=== PATIENT | female | born 1955 | race Caucasian/White ===

== ENCOUNTER 2020-05-28 23:36 | Emergency (ER) | payer SELFPAY ==
[2020-05-29] MEDS ORDERED: HYDROcodone/Acetaminophen 5/325 mg Tablet ONE (01:04)
[2020-05-29 01:08] LABS: ALT (SGPT) 13 U/L (8-55); AST (SGOT) 14 U/L (5-34); Albumin 3.6 g/dL (3.4-4.8); Alkaline Phosphatase 122 U/L (40-110); Anion Gap 15 mmol/L (10-20); BUN (Urea Nitrogen) 15 mg/dL (9.8-20.1); Bilirubin, Total 0.2 mg/dL (0.2-1.2); Calc. Creatinine Clearance 0 mL/min (70-130); Calcium 9.3 mg/dL (7.8-10.44); Carbon Dioxide 24 mmol/L (23-31); Chloride 105 mmol/L (98-107); Estimated GFR-MDRD 73; Globulin 3.2 g/dL (2.4-3.5); Glucose 93 mg/dL (80-115); Potassium 4.1 mmol/L (3.5-5.1); Protein, Total 6.8 g/dL (6.0-8.3); Sodium 140 mmol/L (136-145)
[2020-05-29] MEDS ORDERED: Ketorolac Tromethamine 30 MG/ML VIAL ONE ×2 (01:24→01:25)
[2020-05-29 01:36] LABS: INR-International Normal Ratio 0.9
--- NOTE | 2020-05-29 08:02 | ULT ---
PRELIMINARY REPORT/[facility]/EMERGENCY AFTER HOURS PROCEDURE EXAM: US Duplex right Lower Extremity Veins. CLINICAL HISTORY: RLE pain at Rt knee, HX: PE TECHNIQUE: Real-time ultrasound scan of the veins of the right lower extremity with color Doppler flow, spectral waveform analysis and compression. COMPARISON: None provided. FINDINGS: DEEP VEINS: The common femoral, femoral, and popliteal veins are echolucent and compressible. These vessels demon strate respiratory variation and augmentation. There is normal color Doppler flow throughout. The visualized calf veins are also patent. SUPERFICIAL VEINS: The visualized greater saphenous vein is patent. SOFT TISSUES: A complex popliteal cyst measures 5.6 x 0.6 x 2.3 cm. IMPRESSION: No deep venous thrombosis in the right lower extremity. Complex popliteal cyst measuring 5.6 cm ELECTRONICALLY SIGNED BY: Garret Lazaro MD May 29, 2020 1:16:30 AM [employer] This report is intended for review by the ordering physician only, in accordance of law. If you recei ve this report in error, please call [facility] at [phone]. FINAL REPORT Final report by Dr. [facility] after-hours study ULTRASOUND DOPPLER DUPLEX VENOUS RIGHT LOWER EXTREMITY: DATE: 05/29/2020 12:54 AM HISTORY: Right knee pain in 64-year-old female TECHNIQUE: Grayscale, color-flow, and spectral analysis, of major veins of right lower extremity. FINDINGS: There is demonstration of blood flow with normal compressibility, of the right common femoral, profun da femoral, greater saphenous, femoral, popliteal, and posterior tibial, veins. 0.5 x 2.5 x 5.5 cm heterogeneously hypoechoic mass in popliteal fossa. Agree with preliminary report by [facility]. IMPRESSION: 1) Negative. No deep venous thrombosis of right lower extremity. 2) Complex, thrombosed, hemorrhagic Salguero's cyst. Transcribed Date/Time: 05/29/2020 8:09 AM
== END 2020-05-29 01:45 | disposition home or self-care (01) ==
LOC: ERS 23:36
DX: M71.21 Synovial cyst of popliteal space [Baker], right knee (principal); M54.9 Dorsalgia, unspecified; G89.29 Other chronic pain; I10 Essential (primary) hypertension; G43.909 Migraine, unspecified, not intractable, without status migrainosus; M19.90 Unspecified osteoarthritis, unspecified site; K58.9 Irritable bowel syndrome, unspecified; E21.3 Hyperparathyroidism, unspecified; F17.210 Nicotine dependence, cigarettes, uncomplicated; Z86.711 Personal history of pulmonary embolism; Z87.442 Personal history of urinary calculi; Z79.899 Other long term (current) drug therapy
CPT/HCPCS: 36415; 80053; 85610; 85730; 96372; J1885

== ENCOUNTER 2023-05-30 07:35 | Inpatient (IN) | payer MEDICARE, BC ==
[2023-05-30] MEDS ORDERED: Rocuronium Bromide 10 MG/ML (10ML VIAL) ONE (07:42)
[2023-05-30] MEDS ORDERED: NOREPINEPHRINE 8 MG/250 ML-D5W 250 ML ONE (07:43)
[2023-05-30] MEDS ORDERED: fentaNYL 50 mcg/mL 1 mL Vial ONE ×2 (07:51→10:29)
[2023-05-30 07:52] LABS: Delete Auto Diff?? YES; Hematocrit 44.1 % (36.0-47.0); Hemoglobin 13.8 g/dL (12.0-16.0); Manual Diff?? YES; Mean Corpuscular HGB CONC 31.3 g/dL (32.0-36.0); Mean Corpuscular Hemoglobin 30.7 pg (27.0-31.0); Mean Corpuscular Volume 98.2 fl (78.0-98.0); Mean Platelet Volume 10.1 fL (7.4-10.4); Platelet Count 252 10x3/uL (130-400); RBC Distribution Width 13.6 % (11.5-14.5); Red Blood Cell (RBC) Count 4.49 mill/uL (4.20-5.40)
[2023-05-30] MEDS ORDERED: Acetaminophen 650 MG Suppository ONE (08:06)
[2023-05-30] MEDS ORDERED: Sodium Chloride 0.9% 100 ML ONE (08:07)
[2023-05-30] MEDS ORDERED: Cefepime 2 GM VIAL ONE (08:07)
[2023-05-30 08:09] LABS: INR-International Normal Ratio 1.3; Prothrombin Time 17.1 sec (12.0-14.7)
[2023-05-30 08:10] LABS: PTT 31.9 sec (22.9-36.1)
[2023-05-30 08:14] LABS: Actual Bicarbonate (HCO3a) 22.4 mEq/L (22-28); Analyzer IN Cardio ER; Base Excess (BEa) -5.4 mEq/L (-2.0 to +3.0); CO2 Tension 52.7 mmHg (35.0-45.0); Calcium, Ionized (arterial) 1.16 mmol/L (1.12-1.30); Carboxyhemoglobin (COHb) 1.5 gm% (0.0-3.0); Hematocrit-ABG 43 % (36.0-47.0); Hemoglobin (Hb) 14.7 g/dL (12.0-16.0); Potassium - ABG Lab 5.01 mmol/L (3.70-5.30); pH, Arterial 7.246 (7.35-7.45)
[2023-05-30 08:15] LABS: Bacteria/HPF None Seen HPF (None Seen); Bilirubin Negative (Negative); Blood, Urine 3+ (Negative); CAUTI Indications for Culture Alt mental st,lethar; Clarity Turbid (Clear); Glucose, Urine (Dipstick) Normal (Negative); Ketone, Urine Negative (Negative); Leukocyte Negative Leu/uL (Negative); Nitrite Negative (Negative); Protein, Urine (Dipstick) 50 mg/dL (Neg-Trace); Specific Gravity, Urine 1.026 (1.002-1.036); Urobilinogen Normal mg/dL (Less than 2)
[2023-05-30 08:17] LABS: Amphetamine Not Detected (NotDetected); Barbiturates Screen Not Detected (NotDetected); Benzodiazepine Screen Not Detected (NotDetected); Cocaine Metabolite Screen Not Detected (NotDetected); Methadone Not Detected (NotDetected); Methamphetamine Not Detected (NotDetected); Opiate Screen Detected (NotDetected); Oxycodone Screen Not Detected (NotDetected); Phencyclidine (PCP) Not Detected (NotDetected); THC/Cannabinoid Screen Not Detected (NotDetected); Tricyclic Screen Detected (NotDetected); Urine Culture Reflex No No
[2023-05-30 08:21] LABS: Band 30 % (5-11); CellaVision Operator ID LAB.GE; Lymphocytes 9 % (21-51); Metamyelocyte 6 % (0-0); Monocytes 1 % (0-10); Neutrophil 53 % (42-75); Platelet Adequacy Comment Platelets Normal; Polychromasia SLIGHT = 2-3 cells HPF (0-2); Reactive Lymphocytes 1 % (0-10); Total Cell Count 102; Toxic Granulation MODERATE; Vacuoles SLIGHT
[2023-05-30] MEDS ORDERED: Fentanyl CADD 100 ML IV SCH (08:30)
[2023-05-30 08:33] LABS: Acetaminophen Less than 10 mcg/mL (10.0-30.0); Alcohol Less than 10.0 mg/dL (Less than 10); Magnesium 3.8 mg/dL (1.6-2.6); Salicylate Less than 8.0 mg/dL (15.0-30.0)
[2023-05-30 08:36] LABS: ALT (SGPT) 539 U/L (8-55); AST (SGOT) 596 U/L (5-34); Albumin 3.2 g/dL (3.4-4.8); Alkaline Phosphatase 101 U/L (40-110); Anion Gap 26 mmol/L (10-20); BUN (Urea Nitrogen) 78 mg/dL (9.8-20.1); Bilirubin, Total 0.7 mg/dL (0.2-1.2); Calc. Creatinine Clearance 0 mL/min (70-130); Calcium 8.9 mg/dL (7.8-10.44); Carbon Dioxide 20 mmol/L (23-31); Chloride 98 mmol/L (98-107); Estimated GFR 7; Globulin 3.1 g/dL (2.4-3.5); Glucose 134 mg/dL (80-115); Potassium 5.8 mmol/L (3.5-5.1); Protein, Total 6.3 g/dL (5.8-8.1); Sodium 138 mmol/L (136-145)
[2023-05-30 08:43] LABS: Troponin I 2.525 ng/mL (< 0.028)
[2023-05-30] MEDS ORDERED: Vancomycin (BATCH) 2 GM in Premix 1 BAG IVPB SCH (08:45)
[2023-05-30] MEDS ORDERED: CALCIUM GLUC 1 GM/NS 50 ML BAG ONE (08:54)
[2023-05-30] MEDS ORDERED: Sodium Bicarb 50 MEQ/50 ML VIAL IVP SCH (09:30)
[2023-05-30 09:31] LABS: O2 Tension (PaO2), arterial 41.3 mmHg (> 80.0); Puncture Site LRA
[2023-05-30] MEDS ORDERED: Insulin Regular 300 UNITS/3 ML VIAL SC PRN (09:33)
[2023-05-30] MEDS ORDERED: Acetaminophen 325 MG TAB PO PRN (09:35)
[2023-05-30] MEDS ORDERED: CEFEPIME IVPB PRN (09:36)
[2023-05-30] MEDS ORDERED: Ventilator Sedation Protocol FS SCH (09:45)
[2023-05-30] MEDS ORDERED: Hydrocortisone Sod Succ/PF 100 mg/2 ml Vial ONE (10:05)
[2023-05-30] MEDS ORDERED: LORazepam 2 MG/ML SYR.(CARPUJECT) ONE (10:38)
[2023-05-30] MEDS ORDERED: Fentanyl BOLUS 250 ML IVPB PRN (11:00)
[2023-05-30] MEDS ORDERED: Morphine 2 MG/ML VIAL SLOW IVP PRN (11:00)
[2023-05-30] MEDS ORDERED: DISCONTINUE PREVIOUS NARCOTIC PAIN MEDICATIONS AND BENZODIAZEPINES FS SCH (11:00)
[2023-05-30] MEDS ORDERED: Propofol BOLUS 1,000 MG/100 ML VIAL IV PRN (11:00)
[2023-05-30] MEDS ORDERED: Aspirin 325 MG TAB PER TUBE SCH ×2 (11:00→14:45)
[2023-05-30 12:04] LABS: Troponin I 2.282 ng/mL (< 0.028)
[2023-05-30] MEDS ORDERED: Vancomycin Dose by Levels Sliding Scale (Wt > 99) FS SCH (13:00)
[2023-05-30 13:03] LABS: Lactic Acid 4.4 mmol/L (0.5-2.2)
[2023-05-30] MEDS: Sodium Bicarbonate 150 MEQ in Dextrose 5% in Water 1,000 ML IV SCH (13:04)
[2023-05-30] MEDS ORDERED: Senokot S 8.6-50 MG TAB PO PRN (13:44)
[2023-05-30] MEDS: Doxycycline 100 MG in Sodium Chloride 0.9% 100 ML IVPB SCH (14:30)
[2023-05-30] MEDS: Hydrocortisone Sod Succ/PF 100 mg/2 ml Vial IVP SCH ×2 (14:31→21:39)
[2023-05-30] MEDS: Heparin 5,000 UNITS/ML VIAL SC SCH ×2 (14:31→21:39)
[2023-05-30] MEDS: Nicotine 14 MG PATCH TD SCH (14:31)
[2023-05-30] MEDS: Ipratropium/Albuterol 3 ML NEB NEB SCH ×3 (14:36→22:31)
[2023-05-30 14:42] LABS: Actual Bicarbonate (HCO3a) 18.9 mEq/L (22-28); Base Excess (BEa) -7.3 mEq/L (-2.0 to +3.0); CO2 Tension 40.7 mmHg (35.0-45.0); Calcium, Ionized (arterial) 1.15 mmol/L (1.12-1.30); Carboxyhemoglobin (COHb) 0.3 gm% (0.0-3.0); Hematocrit-ABG 42 % (36.0-47.0); Hemoglobin (Hb) 14.3 g/dL (12.0-16.0); Potassium - ABG Lab 4.83 mmol/L (3.70-5.30); pH, Arterial 7.285 (7.35-7.45)
[2023-05-30 15:15] LABS: O2 Tension (PaO2), arterial 55.5 mmHg (> 80.0)
[2023-05-30 15:16] LABS: Puncture Site LRA
[2023-05-30] MEDS ORDERED: Vecuronium 10 MG VIAL ONE (15:44)
[2023-05-30] MEDS: Lorazepam 2 MG/ML VIAL SLOW IVP PRN (15:47)
[2023-05-30 16:04] LABS: Critical Call Chem Troponin I RESULT DECREASING; Troponin I 1.995 ng/mL (< 0.028)
[2023-05-30 16:10] LABS: Legionella Urinary Ag Negative (Negative); Strep pneumo Urine Ag NEGATIVE (NEGATIVE)
[2023-05-30 16:17] LABS: SARS-CoV-2 NAA Rapid Test Not Detected (NotDetected)
[2023-05-30] MEDS: Insulin Regular 300 UNITS/3 ML VIAL SC PRN ×2 (16:32→21:44)
[2023-05-30] MEDS: NOREPINEPHRINE 8 MG/250 ML-D5W 250 ML IVPB PRN (17:20)
[2023-05-30] MEDS: Acetaminophen 325 MG TAB PER TUBE PRN (17:51)
[2023-05-30 18:28] LABS: Anion Gap 20 mmol/L (10-20); BUN (Urea Nitrogen) 80 mg/dL (9.8-20.1); Calc. Creatinine Clearance 19 mL/min (70-130); Calcium 8.8 mg/dL (7.8-10.44); Carbon Dioxide 21 mmol/L (23-31); Chloride 101 mmol/L (98-107); Estimated GFR 9; Glucose 291 mg/dL (80-115); Potassium 4.8 mmol/L (3.5-5.1); Sodium 137 mmol/L (136-145)
[2023-05-30] MEDS: Budesonide 0.5 MG/2 ML NEB INH SCH (18:42)
[2023-05-30] MEDS: Vecuronium 10 MG VIAL IV PRN (20:20)
[2023-05-30] MEDS: Pantoprazole 40 MG VIAL IVP SCH (20:20)
[2023-05-30] MEDS: Propofol 1,000 MG/100 ML VIAL IV PRN (20:21)
[2023-05-30] MEDS ORDERED: Famotidine/PF 20 mg/2ml Vial SLOW IVP SCH (21:00)
[2023-05-30] MEDS ORDERED: Vancomycin 1 GM in Premix 1 BAG IVPB SCH (21:00)
[2023-05-31] MEDS: Insulin Regular 300 UNITS/3 ML VIAL SC PRN ×2 (00:34→05:18)
[2023-05-31] MEDS: Propofol 1,000 MG/100 ML VIAL IV PRN ×5 (00:34→20:56)
[2023-05-31] MEDS: Fentanyl CADD 100 ML IV SCH ×2 (00:34→20:46)
[2023-05-31] MEDS: Sodium Bicarbonate 150 MEQ in Dextrose 5% in Water 1,000 ML IV SCH (01:22)
[2023-05-31] MEDS: Doxycycline 100 MG in Sodium Chloride 0.9% 100 ML IVPB SCH ×2 (01:50→13:23)
[2023-05-31 04:24] LABS: Hematocrit 36.8 % (36.0-47.0); Hemoglobin 12.2 g/dL (12.0-16.0); Manual Diff?? YES; Mean Corpuscular HGB CONC 33.2 g/dL (32.0-36.0); Mean Corpuscular Hemoglobin 30.7 pg (27.0-31.0); Mean Platelet Volume 10.6 fL (7.4-10.4); Platelet Count 219 10x3/uL (130-400); RBC Distribution Width 13.7 % (11.5-14.5); Red Blood Cell (RBC) Count 3.98 mill/uL (4.20-5.40); White Blood Cell (WBC) Count 19.7 10x3/uL (4.8-10.8)
[2023-05-31 04:48] LABS: ALT (SGPT) 372 U/L (8-55); AST (SGOT) 346 U/L (5-34); Albumin 2.5 g/dL (3.4-4.8); Alkaline Phosphatase 89 U/L (40-110); Anion Gap 18 mmol/L (10-20); BUN (Urea Nitrogen) 92 mg/dL (9.8-20.1); Bilirubin, Total 0.6 mg/dL (0.2-1.2); Calc. Creatinine Clearance 18 mL/min (70-130); Calcium 8.8 mg/dL (7.8-10.44); Carbon Dioxide 24 mmol/L (23-31); Chloride 99 mmol/L (98-107); Estimated GFR 9; Globulin 3.3 g/dL (2.4-3.5); Glucose 213 mg/dL (80-115); Lactic Acid 2.5 mmol/L (0.5-2.2); Potassium 4.4 mmol/L (3.5-5.1); Protein, Total 5.8 g/dL (5.8-8.1); Sodium 137 mmol/L (136-145)
[2023-05-31 04:50] LABS: Delete Auto Diff?? YES; Mean Corpuscular Volume 92.5 fl (78.0-98.0)
[2023-05-31] MEDS: Heparin 5,000 UNITS/ML VIAL SC SCH ×3 (05:05→21:11)
[2023-05-31] MEDS: Hydrocortisone Sod Succ/PF 100 mg/2 ml Vial IVP SCH ×3 (05:05→21:09)
[2023-05-31 06:37] LABS: Anisocytosis MODERATE=16-30 cells HPF (0-5); Band 24 % (5-11); CellaVision Operator ID LAB.JMM; Lymphocytes 3 % (21-51); Macrocytosis SLIGHT = 6-15 cells HPF (0-5); Metamyelocyte 6 % (0-0); Monocytes 3 % (0-10); Neutrophil 65 % (42-75); Platelet Adequacy Comment Platelets Normal; Polychromasia SLIGHT = 2-3 cells HPF (0-2); Smudge Cells 12.7 %; Target Cells SLIGHT = 2-5 cells HPF (0-1); Total Cell Count 102; Toxic Granulation MODERATE
[2023-05-31] MEDS: Sodium Chloride 0.9% 1,000 ML IV SCH ×2 (06:38→20:25)
[2023-05-31] MEDS: Budesonide 0.5 MG/2 ML NEB INH SCH ×2 (07:33→18:40)
[2023-05-31] MEDS: Ipratropium/Albuterol 3 ML NEB NEB SCH ×4 (07:33→23:15)
[2023-05-31 07:40] LABS: Actual Bicarbonate (HCO3a) 24.3 mEq/L (22-28); Base Excess (BEa) 1.1 mEq/L (-2.0 to +3.0); CO2 Tension 34.3 mmHg (35.0-45.0); Calcium, Ionized (arterial) 1.12 mmol/L (1.12-1.30); Carboxyhemoglobin (COHb) 0.2 gm% (0.0-3.0); Hematocrit-ABG 40 % (36.0-47.0); Hemoglobin (Hb) 13.5 g/dL (12.0-16.0); O2 Tension (PaO2), arterial 114.7 mmHg (> 80.0); Potassium - ABG Lab 4.35 mmol/L (3.70-5.30); pH, Arterial 7.469 (7.35-7.45)
[2023-05-31 07:44] LABS: Puncture Site RRA
[2023-05-31] MEDS: Cefepime 1 GM in Sodium Chloride 0.9% 100 ML IVPB SCH (07:48)
[2023-05-31] MEDS: Aspirin Chewable 81 MG TAB PER TUBE SCH (07:49)
[2023-05-31] MEDS: Lorazepam 2 MG/ML VIAL SLOW IVP PRN ×2 (08:00→10:23)
[2023-05-31] MEDS: Vecuronium 10 MG VIAL IV PRN (08:01)
[2023-05-31] MEDS: Acetaminophen 325 MG TAB PER TUBE PRN ×2 (08:25→21:26)
[2023-05-31 12:26] LABS: Vancomycin, Random 23.6 ug/mL (See Comment)
[2023-05-31] MEDS: Nicotine 14 MG PATCH TD SCH (13:23)
[2023-05-31 13:49] LABS: Actual Bicarbonate (HCO3a) 22.3 mEq/L (22-28); Base Excess (BEa) -2.1 mEq/L (-2.0 to +3.0); CO2 Tension 37.3 mmHg (35.0-45.0); Calcium, Ionized (arterial) 1.11 mmol/L (1.12-1.30); Carboxyhemoglobin (COHb) 0.1 gm% (0.0-3.0); Hematocrit-ABG 39 % (36.0-47.0); Hemoglobin (Hb) 13.2 g/dL (12.0-16.0); O2 Tension (PaO2), arterial 66.1 mmHg (> 80.0); Potassium - ABG Lab 4.48 mmol/L (3.70-5.30); pH, Arterial 7.395 (7.35-7.45)
[2023-05-31 13:50] LABS: Puncture Site RRA
[2023-05-31] MEDS: Pantoprazole 40 MG VIAL IVP SCH (21:01)
[2023-06-01] MEDS: Propofol 1,000 MG/100 ML VIAL IV PRN ×2 (00:55→05:23)
[2023-06-01] MEDS: Doxycycline 100 MG in Sodium Chloride 0.9% 100 ML IVPB SCH ×2 (02:14→15:00)
[2023-06-01] MEDS: NOREPINEPHRINE 8 MG/250 ML-D5W 250 ML IVPB PRN (02:15)
[2023-06-01 04:30] LABS: Hematocrit 36.7 % (36.0-47.0); Hemoglobin 11.9 g/dL (12.0-16.0); Manual Diff?? YES; Mean Corpuscular HGB CONC 32.4 g/dL (32.0-36.0); Mean Corpuscular Hemoglobin 31.1 pg (27.0-31.0); Mean Corpuscular Volume 95.8 fl (78.0-98.0); Mean Platelet Volume 10.4 fL (7.4-10.4); Platelet Count 219 10x3/uL (130-400); RBC Distribution Width 14.5 % (11.5-14.5); Red Blood Cell (RBC) Count 3.83 mill/uL (4.20-5.40); White Blood Cell (WBC) Count 22.4 10x3/uL (4.8-10.8)
[2023-06-01 04:59] LABS: Albumin 2.4 g/dL (3.4-4.8); Chloride 98 mmol/L (98-107); Potassium 4.7 mmol/L (3.5-5.1); Sodium 136 mmol/L (136-145)
[2023-06-01 05:00] LABS: Anion Gap 22 mmol/L (10-20); BUN (Urea Nitrogen) 103 mg/dL (9.8-20.1); Calc. Creatinine Clearance 16 mL/min (70-130); Carbon Dioxide 21 mmol/L (23-31); Estimated GFR 7
[2023-06-01 05:01] LABS: ALT (SGPT) 301 U/L (8-55); AST (SGOT) 273 U/L (5-34); Alkaline Phosphatase 99 U/L (40-110); Bilirubin, Total 0.4 mg/dL (0.2-1.2); Calcium 8.7 mg/dL (7.6-10.4); Globulin 3.6 g/dL (2.4-3.5); Glucose 168 mg/dL (80-115)
[2023-06-01 05:05] LABS: Delete Auto Diff?? YES
[2023-06-01] MEDS: Heparin 5,000 UNITS/ML VIAL SC SCH ×3 (05:11→21:05)
[2023-06-01] MEDS: Hydrocortisone Sod Succ/PF 100 mg/2 ml Vial IVP SCH ×3 (05:12→21:06)
[2023-06-01 05:50] LABS: Band 11 % (5-11); CellaVision Operator ID lab.abc; Lymphocytes 3 % (21-51); Metamyelocyte 1 % (0-0); Monocytes 1 % (0-10); Myelocyte 2 % (0-0); Neutrophil 80 % (42-75); Nucleated RBC (Manual Ct) 1 % (0); Platelet Adequacy Comment Platelets Normal; RBC Morphology Within Normal Limits; Reactive Lymphocytes 2 % (0-10); Smudge Cells 10.8 %; Total Cell Count 102
[2023-06-01] MEDS: Ipratropium/Albuterol 3 ML NEB NEB SCH ×3 (07:25→18:52)
[2023-06-01] MEDS: Budesonide 0.5 MG/2 ML NEB INH SCH ×2 (07:26→18:54)
[2023-06-01 07:48] LABS: Actual Bicarbonate (HCO3a) 18.9 mEq/L (22-28); Base Excess (BEa) -7.5 mEq/L (-2.0 to +3.0); CO2 Tension 41.6 mmHg (35.0-45.0); Calcium, Ionized (arterial) 1.15 mmol/L (1.12-1.30); Carboxyhemoglobin (COHb) 0.5 gm% (0.0-3.0); Hematocrit-ABG 42 % (36.0-47.0); Hemoglobin (Hb) 14.2 g/dL (12.0-16.0); O2 Tension (PaO2), arterial 79.7 mmHg (> 80.0); Potassium - ABG Lab 4.58 mmol/L (3.70-5.30); pH, Arterial 7.276 (7.35-7.45)
[2023-06-01 07:49] LABS: Puncture Site RRA
[2023-06-01] MEDS: Cefepime 1 GM in Sodium Chloride 0.9% 100 ML IVPB SCH (08:12)
[2023-06-01] MEDS: Aspirin Chewable 81 MG TAB PER TUBE SCH (08:13)
[2023-06-01] MEDS: Insulin Regular 300 UNITS/3 ML VIAL SC PRN ×3 (08:27→20:36)
[2023-06-01 10:55] LABS: Vancomycin, Random 16.8 ug/mL (See Comment)
[2023-06-01] MEDS ORDERED: Vancomycin HCl 750 MG in Sodium Chloride 0.9% 250 ML 250 ML IVPB SCH (11:15)
[2023-06-01] MEDS: Sodium Chloride 0.9% 1,000 ML IV SCH (12:55)
[2023-06-01] MEDS: Pantoprazole 40 MG VIAL IVP SCH (20:29)
[2023-06-02] MEDS: Ipratropium/Albuterol 3 ML NEB NEB SCH ×5 (02:28→22:37)
[2023-06-02] MEDS: Doxycycline 100 MG in Sodium Chloride 0.9% 100 ML IVPB SCH ×2 (02:52→14:08)
[2023-06-02 04:27] LABS: Hematocrit 34.8 % (36.0-47.0); Hemoglobin 11.3 g/dL (12.0-16.0); Manual Diff?? YES; Mean Corpuscular HGB CONC 32.5 g/dL (32.0-36.0); Mean Corpuscular Volume 95.6 fl (78.0-98.0); Mean Platelet Volume 10.6 fL (7.4-10.4); Platelet Count 209 10x3/uL (130-400); RBC Distribution Width 14.5 % (11.5-14.5); Red Blood Cell (RBC) Count 3.64 mill/uL (4.20-5.40); White Blood Cell (WBC) Count 13.8 10x3/uL (4.8-10.8)
[2023-06-02 04:30] LABS: Delete Auto Diff?? YES
[2023-06-02 04:51] LABS: Anisocytosis SLIGHT = 6-15 cells HPF (0-5); Band 23 % (5-11); CellaVision Operator ID LAB.CLH1; Hypochromia SLIGHT = 6-15 cells HPF (0-5); Lymphocytes 8 % (21-51); Metamyelocyte 3 % (0-0); Monocytes 1 % (0-10); Neutrophil 65 % (42-75); Nucleated RBC (Manual Ct) 1 % (0); Platelet Adequacy Comment Platelets Normal; Polychromasia SLIGHT = 2-3 cells HPF (0-2); Total Cell Count 104
[2023-06-02 05:30] LABS: ALT (SGPT) 194 U/L (8-55); AST (SGOT) 105 U/L (5-34); Albumin 2.3 g/dL (3.4-4.8); Alkaline Phosphatase 68 U/L (40-110); Anion Gap 21 mmol/L (10-20); Bilirubin, Total 0.5 mg/dL (0.2-1.2); Calc. Creatinine Clearance 17 mL/min (70-130); Calcium 8.5 mg/dL (7.8-10.44); Carbon Dioxide 19 mmol/L (23-31); Chloride 100 mmol/L (98-107); Estimated GFR 8; Globulin 3.2 g/dL (2.4-3.5); Glucose 193 mg/dL (80-115); Potassium 4.5 mmol/L (3.5-5.1); Protein, Total 5.5 g/dL (5.8-8.1); Sodium 135 mmol/L (136-145)
[2023-06-02 05:41] LABS: BUN (Urea Nitrogen) 121 mg/dL (9.8-20.1)
[2023-06-02] MEDS: Hydrocortisone Sod Succ/PF 100 mg/2 ml Vial IVP SCH ×2 (06:27→21:46)
[2023-06-02] MEDS: Heparin 5,000 UNITS/ML VIAL SC SCH ×3 (06:27→22:14)
[2023-06-02] MEDS: Fentanyl CADD 100 ML IV SCH (06:38)
[2023-06-02] MEDS: Budesonide 0.5 MG/2 ML NEB INH SCH ×2 (07:34→18:54)
[2023-06-02] MEDS: Cefepime 1 GM in Sodium Chloride 0.9% 100 ML IVPB SCH (08:53)
[2023-06-02] MEDS: Aspirin Chewable 81 MG TAB PER TUBE SCH (08:53)
[2023-06-02] MEDS: Senokot S 8.6-50 MG TAB PO SCH ×2 (09:04→21:47)
[2023-06-02] MEDS: Polyethylene Glycol 3350 17 GM Packet PO SCH (09:04)
[2023-06-02] MEDS: Insulin Regular 300 UNITS/3 ML VIAL SC PRN ×2 (11:42→17:21)
[2023-06-02 12:14] LABS: Vancomycin, Random 20.4 ug/mL (See Comment)
[2023-06-02 12:36] LABS: HBSAB Concentration Less than 8.00 mIU/mL; HBSAg Index 0.16 S/CO (0-0.99); Hep B Core Total Ab Non-Reactive (NonReactive); Hep B Core Total Index 0.09 S/CO (0-0.79); Hep B Surf AB Non-Reactive (NonReactive); Hep B Surf Ag Non-Reactive S/CO (NonReactive); Hep C IgG Ab Non-Reactive S/CO (NonReactive)
[2023-06-02] MEDS: Propofol 1,000 MG/100 ML VIAL IV PRN ×2 (14:16→21:46)
[2023-06-02] MEDS ORDERED: Amiodarone 150 MG, Admixture Fee 1 EACH in Dextrose 5% in Water 100 ML IVPB SCH (16:00)
[2023-06-02] MEDS: Amiodarone 450 MG, Admixture Fee 1 EACH in Dextrose 5% in Water 250 ML IVPB SCH (16:07)
[2023-06-02] MEDS ORDERED: FLU VACC QS2023(65UP)/MF59C/PF 60 MCG/0.5 ML SYRINGE IM ONE (18:00)
[2023-06-02] MEDS: Pantoprazole 40 MG VIAL IVP SCH (21:47)
[2023-06-03] MEDS: Doxycycline 100 MG in Sodium Chloride 0.9% 100 ML IVPB SCH ×2 (01:58→14:45)
[2023-06-03] MEDS: Amiodarone 450 MG, Admixture Fee 1 EACH in Dextrose 5% in Water 250 ML IVPB SCH ×2 (01:58→16:03)
[2023-06-03 04:32] LABS: Hematocrit 36.5 % (36.0-47.0); Manual Diff?? YES; Mean Corpuscular HGB CONC 32.9 g/dL (32.0-36.0); Mean Corpuscular Hemoglobin 30.7 pg (27.0-31.0); Mean Corpuscular Volume 93.4 fl (78.0-98.0); Mean Platelet Volume 10.2 fL (7.4-10.4); Platelet Count 247 10x3/uL (130-400); RBC Distribution Width 14.5 % (11.5-14.5); Red Blood Cell (RBC) Count 3.91 mill/uL (4.20-5.40); White Blood Cell (WBC) Count 18.1 10x3/uL (4.8-10.8)
[2023-06-03 04:35] LABS: Delete Auto Diff?? YES
[2023-06-03 04:59] LABS: ALT (SGPT) 141 U/L (8-55); AST (SGOT) 48 U/L (5-34); Albumin 2.5 g/dL (3.4-4.8); Alkaline Phosphatase 61 U/L (40-110); Anion Gap 19 mmol/L (10-20); BUN (Urea Nitrogen) 106 mg/dL (9.8-20.1); Bilirubin, Total 0.5 mg/dL (0.2-1.2); Calc. Creatinine Clearance 27 mL/min (70-130); Calcium 8.6 mg/dL (7.8-10.44); Carbon Dioxide 20 mmol/L (23-31); Chloride 101 mmol/L (98-107); Estimated GFR 13; Globulin 3.1 g/dL (2.4-3.5); Glucose 172 mg/dL (80-115); Potassium 4.3 mmol/L (3.5-5.1); Protein, Total 5.6 g/dL (5.8-8.1); Sodium 136 mmol/L (136-145)
[2023-06-03 05:00] LABS: Anisocytosis SLIGHT = 6-15 cells HPF (0-5); Band 6 % (5-11); CellaVision Operator ID lab.sh2; Lymphocytes 3 % (21-51); Monocytes 6 % (0-10); Neutrophil 85 % (42-75); Platelet Adequacy Comment Platelets Normal; Polychromasia SLIGHT = 2-3 cells HPF (0-2); Reactive Lymphocytes 1 % (0-10); Smudge Cells 18.1 %; Target Cells SLIGHT = 2-5 cells HPF (0-1); Tear Drops SLIGHT = 2-5 cells HPF (0-1); Total Cell Count 116; Vacuoles SLIGHT
[2023-06-03] MEDS: Heparin 5,000 UNITS/ML VIAL SC SCH ×3 (06:31→23:31)
[2023-06-03] MEDS: Ipratropium/Albuterol 3 ML NEB NEB SCH ×4 (06:58→22:27)
[2023-06-03] MEDS: Budesonide 0.5 MG/2 ML NEB INH SCH ×2 (07:27→19:05)
[2023-06-03 07:45] LABS: Actual Bicarbonate (HCO3a) 22.9 mEq/L (22-28); Base Excess (BEa) -2.1 mEq/L (-2.0 to +3.0); CO2 Tension 40.2 mmHg (35.0-45.0); Calcium, Ionized (arterial) 1.16 mmol/L (1.12-1.30); Hematocrit-ABG 43 % (36.0-47.0); Hemoglobin (Hb) 14.5 g/dL (12.0-16.0); O2 Tension (PaO2), arterial 75.5 mmHg (> 80.0); Potassium - ABG Lab 4.26 mmol/L (3.70-5.30); pH, Arterial 7.374 (7.35-7.45)
[2023-06-03 07:46] LABS: Puncture Site RBA
[2023-06-03] MEDS: Aspirin Chewable 81 MG TAB PER TUBE SCH (08:41)
[2023-06-03] MEDS: Cefepime 1 GM in Sodium Chloride 0.9% 100 ML IVPB SCH (08:41)
[2023-06-03] MEDS ORDERED: Dexmedetomidine In 0.9 % NaCl 100 ML IVPB SCH (08:45)
[2023-06-03] MEDS: Hydrocortisone Sod Succ/PF 100 mg/2 ml Vial IVP SCH ×2 (08:46→22:01)
[2023-06-03] MEDS: Polyethylene Glycol 3350 17 GM Packet PO SCH (08:47)
[2023-06-03] MEDS: Senokot S 8.6-50 MG TAB PO SCH ×3 (08:47→22:11)
[2023-06-03] MEDS: Ondansetron PF 4 MG/2 ML Vial IVP PRN (08:55)
[2023-06-03] MEDS ORDERED: Heparin 10,000 UNITS/ 10 ML VIAL ONE ×2 (10:34→16:00)
[2023-06-03 12:41] LABS: Vancomycin, Random 15.6 ug/mL (See Comment)
[2023-06-03] MEDS: HYDROcodone/Acetaminophen 5/325 mg Tablet PO PRN ×2 (17:21→23:30)
[2023-06-03] MEDS ORDERED: Sterile Water 10 ML VIAL IVP SCH (22:00)
[2023-06-03] MEDS ORDERED: Activase 2 MG VIAL CATH SCH (22:00)
[2023-06-03] MEDS: Pantoprazole 40 MG VIAL IVP SCH (22:01)
[2023-06-04] MEDS: Ondansetron PF 4 MG/2 ML Vial IVP PRN ×3 (00:54→18:49)
[2023-06-04] MEDS ORDERED: HYDROcodone/Acetaminophen 5/325 mg Tablet PO SCH (01:15)
[2023-06-04] MEDS: Doxycycline 100 MG in Sodium Chloride 0.9% 100 ML IVPB SCH ×2 (02:46→13:44)
[2023-06-04 04:19] LABS: Hematocrit 36.1 % (36.0-47.0); Manual Diff?? YES; Mean Corpuscular HGB CONC 33.2 g/dL (32.0-36.0); Mean Corpuscular Hemoglobin 30.6 pg (27.0-31.0); Mean Corpuscular Volume 92.1 fl (78.0-98.0); Mean Platelet Volume 10.2 fL (7.4-10.4); Platelet Count 269 10x3/uL (130-400); RBC Distribution Width 13.9 % (11.5-14.5); Red Blood Cell (RBC) Count 3.92 mill/uL (4.20-5.40); White Blood Cell (WBC) Count 28.8 10x3/uL (4.8-10.8)
[2023-06-04 04:20] LABS: Delete Auto Diff?? YES
[2023-06-04 04:51] LABS: Hemoglobin A1c 6.7 % (4.0-6.0)
[2023-06-04 04:56] LABS: Anisocytosis SLIGHT = 6-15 cells HPF (0-5); Band 10 % (5-11); CellaVision Operator ID LAB.CLH1; Eosinophils 1 % (0-10); Lymphocytes 3 % (21-51); Metamyelocyte 3 % (0-0); Monocytes 6 % (0-10); Neutrophil 73 % (42-75); Platelet Adequacy Comment Platelets Normal; Polychromasia SLIGHT = 2-3 cells HPF (0-2); Reactive Lymphocytes 5 % (0-10); Target Cells SLIGHT = 2-5 cells HPF (0-1); Total Cell Count 105
[2023-06-04 04:57] LABS: ALT (SGPT) 133 U/L (8-55); AST (SGOT) 76 U/L (5-34); Albumin 2.7 g/dL (3.4-4.8); Alkaline Phosphatase 66 U/L (40-110); Anion Gap 18 mmol/L (10-20); BUN (Urea Nitrogen) 56 mg/dL (9.8-20.1); Bilirubin, Total 0.9 mg/dL (0.2-1.2); Calcium 8.5 mg/dL (7.8-10.44); Carbon Dioxide 24 mmol/L (23-31); Chloride 99 mmol/L (98-107); Globulin 3.4 g/dL (2.4-3.5); Glucose 105 mg/dL (80-115); Potassium 3.6 mmol/L (3.5-5.1); Protein, Total 6.1 g/dL (5.8-8.1); Sodium 137 mmol/L (136-145)
[2023-06-04 04:58] LABS: Calc. Creatinine Clearance 50 mL/min (70-130); Estimated GFR 28
[2023-06-04] MEDS: Heparin 5,000 UNITS/ML VIAL SC SCH ×3 (06:20→20:52)
[2023-06-04] MEDS: HYDROcodone/Acetaminophen 5/325 mg Tablet PO PRN ×3 (07:17→17:12)
[2023-06-04] MEDS: Ipratropium/Albuterol 3 ML NEB NEB SCH ×3 (07:39→18:35)
[2023-06-04] MEDS: Budesonide 0.5 MG/2 ML NEB INH SCH ×2 (07:42→18:35)
[2023-06-04] MEDS: Cefepime 1 GM in Sodium Chloride 0.9% 100 ML IVPB SCH (07:58)
[2023-06-04] MEDS: Aspirin Chewable 81 MG TAB PER TUBE SCH (07:59)
[2023-06-04] MEDS: Senokot S 8.6-50 MG TAB PO SCH ×2 (08:03→20:52)
[2023-06-04] MEDS: Polyethylene Glycol 3350 17 GM Packet PO SCH (08:03)
[2023-06-04] MEDS: Hydrocortisone Sod Succ/PF 100 mg/2 ml Vial IVP SCH (08:44)
[2023-06-04] MEDS: Amiodarone 450 MG, Admixture Fee 1 EACH in Dextrose 5% in Water 250 ML IVPB SCH (08:52)
[2023-06-04] MEDS: clonazePAM 0.5 MG TAB PO PRN (11:50)
[2023-06-04] MEDS: Cyclobenzaprine 10 MG TAB PO PRN (11:50)
[2023-06-04] MEDS ORDERED: Morphine 4 MG/ML VIAL SLOW IVP SCH (18:45)
[2023-06-04] MEDS: Gabapentin 300 MG CAP PO SCH (20:52)
[2023-06-04] MEDS: traZODone HCl 150 MG TAB PO SCH (20:52)
[2023-06-04] MEDS ORDERED: Lidocaine 2% Viscous Solution 10 ML, Aluminum & Magnesium Hydroxide 30 ML SSP SCH (22:00)
[2023-06-04] MEDS ORDERED: Metoprolol Tartrate 5 MG/5 ML VIAL ONE (22:41)
[2023-06-04] MEDS: Morphine 4 MG/ML VIAL SLOW IVP PRN (22:42)
[2023-06-04] MEDS ORDERED: Metoprolol Tartrate 5 MG/5 ML VIAL IVP SCH (22:45)
[2023-06-05] MEDS: HYDROcodone/Acetaminophen 5/325 mg Tablet PO PRN ×2 (00:01→07:52)
[2023-06-05] MEDS: Cyclobenzaprine 10 MG TAB PO PRN ×3 (00:02→20:10)
[2023-06-05] MEDS: clonazePAM 0.5 MG TAB PO PRN ×3 (00:02→20:10)
[2023-06-05] MEDS: Ipratropium/Albuterol 3 ML NEB NEB SCH ×4 (00:17→18:43)
[2023-06-05] MEDS: Amiodarone 450 MG, Admixture Fee 1 EACH in Dextrose 5% in Water 250 ML IVPB SCH ×2 (00:27→14:02)
[2023-06-05] MEDS: Doxycycline 100 MG in Sodium Chloride 0.9% 100 ML IVPB SCH ×2 (01:53→14:16)
[2023-06-05] MEDS: Morphine 4 MG/ML VIAL SLOW IVP PRN ×5 (02:56→19:19)
[2023-06-05 05:32] LABS: Hematocrit 32.7 % (36.0-47.0); Hemoglobin 10.9 g/dL (12.0-16.0); Manual Diff?? YES; Mean Corpuscular HGB CONC 33.3 g/dL (32.0-36.0); Mean Corpuscular Hemoglobin 31.1 pg (27.0-31.0); Mean Corpuscular Volume 93.2 fl (78.0-98.0); Mean Platelet Volume 9.7 fL (7.4-10.4); Platelet Count 298 10x3/uL (130-400); RBC Distribution Width 13.9 % (11.5-14.5); Red Blood Cell (RBC) Count 3.51 mill/uL (4.20-5.40); White Blood Cell (WBC) Count 26.8 10x3/uL (4.8-10.8)
[2023-06-05 06:01] LABS: Delete Auto Diff?? YES
[2023-06-05 06:07] LABS: ALT (SGPT) 102 U/L (8-55); AST (SGOT) 61 U/L (5-34); Albumin 2.6 g/dL (3.4-4.8); Alkaline Phosphatase 73 U/L (40-110); Anion Gap 15 mmol/L (10-20); BUN (Urea Nitrogen) 73 mg/dL (9.8-20.1); Bilirubin, Total 0.8 mg/dL (0.2-1.2); Calc. Creatinine Clearance 42 mL/min (70-130); Calcium 8.8 mg/dL (7.8-10.44); Carbon Dioxide 24 mmol/L (23-31); Chloride 104 mmol/L (98-107); Estimated GFR 24; Globulin 3.1 g/dL (2.4-3.5); Glucose 117 mg/dL (80-115); Potassium 3.6 mmol/L (3.5-5.1); Protein, Total 5.7 g/dL (5.8-8.1); Sodium 139 mmol/L (136-145)
[2023-06-05 07:45] LABS: Band 6 % (5-11); CellaVision Operator ID LAB.GE; Lymphocytes 3 % (21-51); Metamyelocyte 9 % (0-0); Monocytes 3 % (0-10); Myelocyte 3 % (0-0); Neutrophil 74 % (42-75); Platelet Adequacy Comment Platelets Normal; Polychromasia SLIGHT = 2-3 cells HPF (0-2); Reactive Lymphocytes 2 % (0-10); Smudge Cells 3.9 %; Target Cells SLIGHT = 2-5 cells HPF (0-1); Total Cell Count 103; Toxic Granulation SLIGHT
[2023-06-05] MEDS: Ondansetron PF 4 MG/2 ML Vial IVP PRN ×2 (07:51→15:55)
[2023-06-05] MEDS: Heparin 5,000 UNITS/ML VIAL SC SCH ×2 (07:51→14:15)
[2023-06-05] MEDS: Cefepime 1 GM in Sodium Chloride 0.9% 100 ML IVPB SCH (07:51)
[2023-06-05] MEDS: Gabapentin 300 MG CAP PO SCH ×2 (07:52→20:10)
[2023-06-05] MEDS: Budesonide 0.5 MG/2 ML NEB INH SCH ×2 (07:52→18:45)
[2023-06-05] MEDS: Aspirin Chewable 81 MG TAB PER TUBE SCH (07:53)
[2023-06-05] MEDS ORDERED: Lactated Ringer's 1,000 ML IV SCH (09:30)
[2023-06-05] MEDS: Polyethylene Glycol 3350 17 GM Packet PO SCH (10:01)
[2023-06-05] MEDS: Senokot S 8.6-50 MG TAB PO SCH ×2 (10:01→20:11)
[2023-06-05] MEDS: Venlafaxine HCl XR 75 MG CAP PO SCH (10:05)
[2023-06-05] MEDS: Acetaminophen 325 MG TAB PO SCH ×3 (10:05→20:11)
[2023-06-05] MEDS: HYDROcodone/Acetaminophen 10/325 mg Tablet PO PRN ×2 (12:51→19:19)
[2023-06-05] MEDS ORDERED: Lidocaine 2% Viscous 100 ML BOTTLE SSP SCH (13:15)
[2023-06-05] MEDS: Nystatin 500,000 UNITS/5 ML UDCUP SSW SCH ×2 (17:50→20:11)
[2023-06-05] MEDS: traZODone HCl 150 MG TAB PO SCH (20:10)
[2023-06-06] MEDS: Heparin 5,000 UNITS/ML VIAL SC SCH ×4 (01:46→21:20)
[2023-06-06] MEDS: Doxycycline 100 MG in Sodium Chloride 0.9% 100 ML IVPB SCH ×2 (01:46→13:30)
[2023-06-06] MEDS: Ipratropium/Albuterol 3 ML NEB NEB SCH ×5 (02:01→23:10)
[2023-06-06] MEDS: Morphine 4 MG/ML VIAL SLOW IVP PRN (04:53)
[2023-06-06] MEDS: HYDROcodone/Acetaminophen 10/325 mg Tablet PO PRN ×2 (04:54→21:12)
[2023-06-06] MEDS: Acetaminophen 325 MG TAB PO SCH ×4 (04:58→21:14)
[2023-06-06 05:23] LABS: Hematocrit 32.2 % (36.0-47.0); Hemoglobin 10.4 g/dL (12.0-16.0); Manual Diff?? YES; Mean Corpuscular HGB CONC 32.3 g/dL (32.0-36.0); Mean Platelet Volume 9.5 fL (7.4-10.4); Platelet Count 312 10x3/uL (130-400); RBC Distribution Width 14.2 % (11.5-14.5); Red Blood Cell (RBC) Count 3.35 mill/uL (4.20-5.40); White Blood Cell (WBC) Count 28.2 10x3/uL (4.8-10.8)
[2023-06-06 05:25] LABS: Delete Auto Diff?? YES
[2023-06-06 05:48] LABS: ALT (SGPT) 78 U/L (8-55); AST (SGOT) 34 U/L (5-34); Albumin 2.2 g/dL (3.4-4.8); Alkaline Phosphatase 77 U/L (40-110); Anion Gap 12 mmol/L (10-20); BUN (Urea Nitrogen) 77 mg/dL (9.8-20.1); Band 7 % (5-11); Bilirubin, Total 0.6 mg/dL (0.2-1.2); Calc. Creatinine Clearance 43 mL/min (70-130); Calcium 9.1 mg/dL (7.8-10.44); Carbon Dioxide 26 mmol/L (23-31); CellaVision Operator ID LAB.CLH1; Chloride 106 mmol/L (98-107); Eosinophils 2 % (0-10); Estimated GFR 23; Globulin 3.5 g/dL (2.4-3.5); Glucose 93 mg/dL (80-115); Hypochromia SLIGHT = 6-15 cells HPF (0-5); Lymphocytes 3 % (21-51); Metamyelocyte 1 % (0-0); Monocytes 5 % (0-10); Neutrophil 78 % (42-75); Platelet Adequacy Comment Platelets Normal; Polychromasia SLIGHT = 2-3 cells HPF (0-2); Potassium 4.2 mmol/L (3.5-5.1); Protein, Total 5.7 g/dL (5.8-8.1); Reactive Lymphocytes 4 % (0-10); Sodium 140 mmol/L (136-145); Total Cell Count 102
[2023-06-06 05:50] LABS: Mean Corpuscular Volume 96.1 fl (78.0-98.0)
[2023-06-06] MEDS: Nystatin 500,000 UNITS/5 ML UDCUP SSW SCH ×2 (08:12→13:30)
[2023-06-06] MEDS: Polyethylene Glycol 3350 17 GM Packet PO SCH (08:12)
[2023-06-06] MEDS: Aspirin Chewable 81 MG TAB PER TUBE SCH (08:12)
[2023-06-06] MEDS: Amiodarone 200 MG TAB PO SCH ×2 (08:13→21:13)
[2023-06-06] MEDS: Venlafaxine HCl XR 75 MG CAP PO SCH (08:13)
[2023-06-06] MEDS: Senokot S 8.6-50 MG TAB PO SCH ×2 (08:13→21:09)
[2023-06-06] MEDS: Gabapentin 300 MG CAP PO SCH ×2 (08:13→21:07)
[2023-06-06] MEDS: Budesonide 0.5 MG/2 ML NEB INH SCH ×2 (08:25→19:05)
[2023-06-06] MEDS ORDERED: Fluconazole 100 MG TAB PO SCH (15:45)
[2023-06-06] MEDS: Aluminum & Magnesium Hydroxide 60 ML, diphenhydrAMINE 150 MG, Lidocaine 2% Viscous Solu... SSW PRN (17:29)
[2023-06-06] MEDS ORDERED: Cefdinir 300 MG CAP PO SCH (21:00)
[2023-06-06] MEDS: Cipro 250 MG TAB PO SCH (21:06)
[2023-06-06] MEDS: Atorvastatin Calcium 20 MG TAB PO SCH (21:09)
[2023-06-06] MEDS: traZODone HCl 150 MG TAB PO SCH (21:09)
[2023-06-07 05:21] LABS: ALT (SGPT) 61 U/L (8-55); AST (SGOT) 31 U/L (5-34); Albumin 2.3 g/dL (3.4-4.8); Alkaline Phosphatase 93 U/L (40-110); Anion Gap 14 mmol/L (10-20); BUN (Urea Nitrogen) 78 mg/dL (9.8-20.1); Bilirubin, Total 0.5 mg/dL (0.2-1.2); Calc. Creatinine Clearance 46 mL/min (70-130); Carbon Dioxide 24 mmol/L (23-31); Chloride 104 mmol/L (98-107); Estimated GFR 25; Globulin 3.4 g/dL (2.4-3.5); Glucose 85 mg/dL (80-115); Potassium 4.5 mmol/L (3.5-5.1); Protein, Total 5.7 g/dL (5.8-8.1); Sodium 137 mmol/L (136-145)
[2023-06-07] MEDS: Acetaminophen 325 MG TAB PO SCH ×4 (05:53→20:09)
[2023-06-07] MEDS: Aluminum & Magnesium Hydroxide 60 ML, diphenhydrAMINE 150 MG, Lidocaine 2% Viscous Solu... SSW PRN ×3 (06:06→19:59)
[2023-06-07] MEDS: Heparin 5,000 UNITS/ML VIAL SC SCH (06:07)
[2023-06-07] MEDS: HYDROcodone/Acetaminophen 10/325 mg Tablet PO PRN ×2 (06:08→15:48)
[2023-06-07] MEDS: Cipro 250 MG TAB PO SCH ×2 (06:10→20:02)
[2023-06-07] MEDS: Ipratropium/Albuterol 3 ML NEB NEB SCH ×4 (06:55→23:13)
[2023-06-07] MEDS: Budesonide 0.5 MG/2 ML NEB INH SCH ×2 (06:56→18:53)
[2023-06-07 07:45] LABS: Hematocrit 32.5 % (36.0-47.0); Hemoglobin 10.5 g/dL (12.0-16.0); Manual Diff?? YES; Mean Corpuscular HGB CONC 32.3 g/dL (32.0-36.0); Mean Corpuscular Hemoglobin 31.1 pg (27.0-31.0); Mean Corpuscular Volume 96.2 fl (78.0-98.0); Mean Platelet Volume 9.5 fL (7.4-10.4); Platelet Count 349 10x3/uL (130-400); RBC Distribution Width 14.4 % (11.5-14.5); Red Blood Cell (RBC) Count 3.38 mill/uL (4.20-5.40); White Blood Cell (WBC) Count 24.2 10x3/uL (4.8-10.8)
[2023-06-07 07:55] LABS: Delete Auto Diff?? YES
[2023-06-07 07:57] LABS: #Basophils 0.1 thou/uL (0.0-0.2); #Eosinphils 0.3 thou/uL (0.0-0.7); #Neutrophils 18.2 thou/uL (1.40-6.50); %Basophils 0.5 % (0.0-1.0); %Eosinophils 1.2 % (0.0-10.0); %Lymphocytes 8.9 % (21.0-51.0); %Monocytes 4.3 % (0.0-10.0); %Neutrophils 75.1 % (42.0-75.0)
[2023-06-07] MEDS: Morphine 4 MG/ML VIAL SLOW IVP PRN (09:14)
[2023-06-07] MEDS: Aspirin Chewable 81 MG TAB PER TUBE SCH (09:14)
[2023-06-07] MEDS: Amiodarone 200 MG TAB PO SCH ×2 (09:14→20:02)
[2023-06-07] MEDS: Polyethylene Glycol 3350 17 GM Packet PO SCH (09:14)
[2023-06-07] MEDS: Apixaban 5 MG TAB PO SCH ×2 (09:15→20:01)
[2023-06-07] MEDS: Venlafaxine HCl XR 75 MG CAP PO SCH (09:15)
[2023-06-07] MEDS: Gabapentin 300 MG CAP PO SCH ×2 (09:15→20:00)
[2023-06-07] MEDS: Senokot S 8.6-50 MG TAB PO SCH ×2 (09:15→20:01)
[2023-06-07 10:05] LABS: Band 5 % (5-11); CellaVision Operator ID LAB.GE; Eosinophils 2 % (0-10); Lymphocytes 5 % (21-51); Metamyelocyte 1 % (0-0); Monocytes 1 % (0-10); Neutrophil 86 % (42-75); Platelet Adequacy Comment Platelets Normal; Polychromasia SLIGHT = 2-3 cells HPF (0-2); Total Cell Count 100
[2023-06-07] MEDS: Atorvastatin Calcium 20 MG TAB PO SCH (20:02)
[2023-06-07] MEDS: traZODone HCl 150 MG TAB PO SCH (20:02)
[2023-06-08] MEDS: HYDROcodone/Acetaminophen 10/325 mg Tablet PO PRN ×2 (04:23→14:47)
[2023-06-08] MEDS: Aluminum & Magnesium Hydroxide 60 ML, diphenhydrAMINE 150 MG, Lidocaine 2% Viscous Solu... SSW PRN ×3 (04:28→17:29)
[2023-06-08 04:34] LABS: Hematocrit 33.3 % (36.0-47.0); Hemoglobin 10.4 g/dL (12.0-16.0); Manual Diff?? YES; Mean Corpuscular HGB CONC 31.2 g/dL (32.0-36.0); Mean Corpuscular Hemoglobin 30.3 pg (27.0-31.0); Mean Corpuscular Volume 97.1 fl (78.0-98.0); Mean Platelet Volume 9.6 fL (7.4-10.4); Platelet Count 359 10x3/uL (130-400); RBC Distribution Width 14.6 % (11.5-14.5); Red Blood Cell (RBC) Count 3.43 mill/uL (4.20-5.40); White Blood Cell (WBC) Count 19.7 10x3/uL (4.8-10.8)
[2023-06-08 04:35] LABS: Delete Auto Diff?? YES
[2023-06-08 05:01] LABS: Anion Gap 15 mmol/L (10-20); BUN (Urea Nitrogen) 77 mg/dL (9.8-20.1); Calc. Creatinine Clearance 44 mL/min (70-130); Calcium 9.7 mg/dL (7.8-10.44); Carbon Dioxide 22 mmol/L (23-31); Chloride 106 mmol/L (98-107); Estimated GFR 24; Glucose 114 mg/dL (80-115); Potassium 5.3 mmol/L (3.5-5.1); Sodium 138 mmol/L (136-145)
[2023-06-08 05:12] LABS: Band 8 % (5-11); CellaVision Operator ID LAB.CLH1; Eosinophils 3 % (0-10); Hypochromia SLIGHT = 6-15 cells HPF (0-5); Lymphocytes 6 % (21-51); Monocytes 4 % (0-10); Neutrophil 79 % (42-75); Platelet Adequacy Comment Platelets Normal; Polychromasia SLIGHT = 2-3 cells HPF (0-2); Total Cell Count 101
[2023-06-08] MEDS: Budesonide 0.5 MG/2 ML NEB INH SCH ×2 (07:03→19:15)
[2023-06-08] MEDS: Ipratropium/Albuterol 3 ML NEB NEB SCH ×4 (07:06→23:37)
[2023-06-08] MEDS: Acetaminophen 325 MG TAB PO SCH ×4 (07:29→21:40)
[2023-06-08] MEDS: Cipro 250 MG TAB PO SCH ×2 (07:40→20:19)
[2023-06-08] MEDS: Gabapentin 300 MG CAP PO SCH ×2 (08:29→20:20)
[2023-06-08] MEDS: Polyethylene Glycol 3350 17 GM Packet PO SCH ×2 (08:29→08:47)
[2023-06-08] MEDS: Amiodarone 200 MG TAB PO SCH ×2 (08:31→20:19)
[2023-06-08] MEDS: Apixaban 5 MG TAB PO SCH ×2 (08:31→20:19)
[2023-06-08] MEDS: Venlafaxine HCl XR 75 MG CAP PO SCH (08:31)
[2023-06-08] MEDS: Senokot S 8.6-50 MG TAB PO SCH ×2 (08:31→20:21)
[2023-06-08] MEDS: Morphine 4 MG/ML VIAL SLOW IVP PRN (08:34)
[2023-06-08] MEDS: Aspirin Chewable 81 MG TAB PER TUBE SCH (08:36)
[2023-06-08 11:36] LABS: Anion Gap 13 mmol/L (10-20); BUN (Urea Nitrogen) 76 mg/dL (9.8-20.1); Calc. Creatinine Clearance 41 mL/min (70-130); Calcium 9.3 mg/dL (7.8-10.44); Carbon Dioxide 23 mmol/L (23-31); Chloride 108 mmol/L (98-107); Estimated GFR 23; Glucose 131 mg/dL (80-115); Sodium 139 mmol/L (136-145)
[2023-06-08] MEDS ORDERED: guaiFENesin/DM ER PO SCH (13:00)
[2023-06-08] MEDS: traZODone HCl 150 MG TAB PO SCH (20:19)
[2023-06-08] MEDS: Atorvastatin Calcium 20 MG TAB PO SCH (20:19)
[2023-06-08] MEDS: guaiFENesin/DM ER PO SCH (20:20)
[2023-06-09] MEDS: Acetaminophen 325 MG TAB PO SCH ×4 (03:07→21:38)
[2023-06-09 04:52] LABS: #Eosinphils 0.2 thou/uL (0.0-0.7); #Monocytes 1.2 thou/uL (0.11-0.59); #Neutrophils 13.6 thou/uL (1.40-6.50); %Basophils 0.2 % (0.0-1.0); %Eosinophils 1.2 % (0.0-10.0); %Lymphocytes 8.2 % (21.0-51.0); %Monocytes 7.1 % (0.0-10.0); %Neutrophils 80.1 % (42.0-75.0); Hematocrit 31.3 % (36.0-47.0); Hemoglobin 10.1 g/dL (12.0-16.0); Mean Corpuscular HGB CONC 32.3 g/dL (32.0-36.0); Mean Corpuscular Hemoglobin 31.4 pg (27.0-31.0); Mean Corpuscular Volume 97.2 fl (78.0-98.0); Mean Platelet Volume 9.2 fL (7.4-10.4); Platelet Count 327 10x3/uL (130-400); RBC Distribution Width 14.6 % (11.5-14.5); Red Blood Cell (RBC) Count 3.22 mill/uL (4.20-5.40)
[2023-06-09 05:35] LABS: Anion Gap 12 mmol/L (10-20); BUN (Urea Nitrogen) 66 mg/dL (9.8-20.1); Calc. Creatinine Clearance 45 mL/min (70-130); Calcium 9.4 mg/dL (7.8-10.44); Carbon Dioxide 25 mmol/L (23-31); Chloride 107 mmol/L (98-107); Estimated GFR 26; Glucose 103 mg/dL (80-115); Potassium 5.2 mmol/L (3.5-5.1); Sodium 139 mmol/L (136-145)
[2023-06-09] MEDS: Cipro 250 MG TAB PO SCH ×2 (05:37→21:38)
[2023-06-09] MEDS: HYDROcodone/Acetaminophen 10/325 mg Tablet PO PRN ×2 (06:12→15:07)
[2023-06-09] MEDS: Budesonide 0.5 MG/2 ML NEB INH SCH ×2 (06:45→18:37)
[2023-06-09] MEDS: Ipratropium/Albuterol 3 ML NEB NEB SCH ×3 (06:49→18:37)
[2023-06-09] MEDS: Senokot S 8.6-50 MG TAB PO SCH ×2 (09:02→21:39)
[2023-06-09] MEDS: Aspirin Chewable 81 MG TAB PER TUBE SCH (09:03)
[2023-06-09] MEDS: Apixaban 5 MG TAB PO SCH ×2 (09:03→21:37)
[2023-06-09] MEDS: Gabapentin 300 MG CAP PO SCH ×2 (09:03→21:37)
[2023-06-09] MEDS: guaiFENesin/DM ER PO SCH ×2 (09:04→21:38)
[2023-06-09] MEDS: Amiodarone 200 MG TAB PO SCH ×2 (09:04→21:38)
[2023-06-09] MEDS: Venlafaxine HCl XR 75 MG CAP PO SCH (09:05)
[2023-06-09] MEDS: Polyethylene Glycol 3350 17 GM Packet PO SCH (09:05)
[2023-06-09] MEDS: Morphine 4 MG/ML VIAL SLOW IVP PRN ×2 (09:07→19:52)
[2023-06-09 14:56] LABS: Anion Gap 12 mmol/L (10-20); BUN (Urea Nitrogen) 62 mg/dL (9.8-20.1); Calc. Creatinine Clearance 46 mL/min (70-130); Calcium 9.4 mg/dL (7.8-10.44); Carbon Dioxide 23 mmol/L (23-31); Chloride 107 mmol/L (98-107); Estimated GFR 26; Glucose 118 mg/dL (80-115); Potassium 5.2 mmol/L (3.5-5.1); Sodium 137 mmol/L (136-145)
[2023-06-09] MEDS: Aluminum & Magnesium Hydroxide 60 ML, diphenhydrAMINE 150 MG, Lidocaine 2% Viscous Solu... SSW PRN (16:02)
[2023-06-09] MEDS: Ondansetron ODT 4 MG TAB PO PRN (20:04)
[2023-06-09] MEDS: Atorvastatin Calcium 20 MG TAB PO SCH (21:37)
[2023-06-09] MEDS: traZODone HCl 150 MG TAB PO SCH (21:38)
[2023-06-10] MEDS: Ipratropium/Albuterol 3 ML NEB NEB SCH ×4 (00:04→19:14)
[2023-06-10] MEDS: Acetaminophen 325 MG TAB PO SCH ×5 (04:52→20:05)
[2023-06-10 05:56] LABS: #Eosinphils 0.2 thou/uL (0.0-0.7); #Neutrophils 11.6 thou/uL (1.40-6.50); %Basophils 0.3 % (0.0-1.0); %Eosinophils 1.2 % (0.0-10.0); %Lymphocytes 8.8 % (21.0-51.0); %Monocytes 7.1 % (0.0-10.0); %Neutrophils 80.7 % (42.0-75.0); Hematocrit 30.4 % (36.0-47.0); Hemoglobin 9.6 g/dL (12.0-16.0); Mean Corpuscular HGB CONC 31.6 g/dL (32.0-36.0); Mean Corpuscular Hemoglobin 31.5 pg (27.0-31.0); Mean Corpuscular Volume 99.7 fl (78.0-98.0); Mean Platelet Volume 9.3 fL (7.4-10.4); Platelet Count 358 10x3/uL (130-400); RBC Distribution Width 14.5 % (11.5-14.5); Red Blood Cell (RBC) Count 3.05 mill/uL (4.20-5.40); White Blood Cell (WBC) Count 14.4 10x3/uL (4.8-10.8)
[2023-06-10 06:22] LABS: Anion Gap 12 mmol/L (10-20); BUN (Urea Nitrogen) 49 mg/dL (9.8-20.1); Calc. Creatinine Clearance 53 mL/min (70-130); Calcium 9.3 mg/dL (7.8-10.44); Carbon Dioxide 24 mmol/L (23-31); Chloride 109 mmol/L (98-107); Estimated GFR 31; Glucose 105 mg/dL (80-115); Potassium 4.5 mmol/L (3.5-5.1); Sodium 140 mmol/L (136-145)
[2023-06-10] MEDS: Cipro 250 MG TAB PO SCH ×2 (06:32→20:04)
[2023-06-10] MEDS: HYDROcodone/Acetaminophen 10/325 mg Tablet PO PRN ×2 (06:35→17:29)
[2023-06-10] MEDS: Budesonide 0.5 MG/2 ML NEB INH SCH ×2 (07:30→19:15)
[2023-06-10] MEDS: Amiodarone 200 MG TAB PO SCH ×2 (10:04→20:05)
[2023-06-10] MEDS: Gabapentin 300 MG CAP PO SCH ×2 (10:04→20:06)
[2023-06-10] MEDS: Aspirin Chewable 81 MG TAB PER TUBE SCH (10:05)
[2023-06-10] MEDS: Apixaban 5 MG TAB PO SCH ×2 (10:05→20:06)
[2023-06-10] MEDS: Polyethylene Glycol 3350 17 GM Packet PO SCH (10:06)
[2023-06-10] MEDS: guaiFENesin/DM ER PO SCH ×2 (10:06→20:05)
[2023-06-10] MEDS: Venlafaxine HCl XR 75 MG CAP PO SCH (10:07)
[2023-06-10] MEDS: Senokot S 8.6-50 MG TAB PO SCH ×2 (10:07→20:13)
[2023-06-10] MEDS: Aluminum & Magnesium Hydroxide 60 ML, diphenhydrAMINE 150 MG, Lidocaine 2% Viscous Solu... SSW PRN (10:08)
[2023-06-10] MEDS: Morphine 4 MG/ML VIAL SLOW IVP PRN ×2 (10:29→20:06)
[2023-06-10] MEDS: Cyclobenzaprine 10 MG TAB PO PRN (17:32)
[2023-06-10] MEDS: traZODone HCl 150 MG TAB PO SCH (20:04)
[2023-06-10] MEDS: Atorvastatin Calcium 20 MG TAB PO SCH (20:06)
[2023-06-11] MEDS: Ipratropium/Albuterol 3 ML NEB NEB SCH ×4 (00:22→18:31)
[2023-06-11] MEDS: HYDROcodone/Acetaminophen 10/325 mg Tablet PO PRN ×3 (05:05→18:29)
[2023-06-11] MEDS: Acetaminophen 325 MG TAB PO SCH ×4 (05:06→20:51)
[2023-06-11] MEDS: Cipro 250 MG TAB PO SCH ×2 (05:39→20:51)
[2023-06-11] MEDS: Budesonide 0.5 MG/2 ML NEB INH SCH ×2 (08:40→18:31)
[2023-06-11] MEDS: Aluminum & Magnesium Hydroxide 60 ML, diphenhydrAMINE 150 MG, Lidocaine 2% Viscous Solu... SSW PRN ×2 (09:04→11:57)
[2023-06-11] MEDS: Venlafaxine HCl XR 75 MG CAP PO SCH (09:07)
[2023-06-11] MEDS: guaiFENesin/DM ER PO SCH ×2 (09:08→20:50)
[2023-06-11] MEDS: Gabapentin 300 MG CAP PO SCH ×2 (09:08→20:50)
[2023-06-11] MEDS: Amiodarone 200 MG TAB PO SCH ×2 (09:08→20:50)
[2023-06-11] MEDS: Apixaban 5 MG TAB PO SCH ×2 (09:08→20:51)
[2023-06-11] MEDS: Polyethylene Glycol 3350 17 GM Packet PO SCH (09:12)
[2023-06-11] MEDS: Senokot S 8.6-50 MG TAB PO SCH ×2 (09:12→20:54)
[2023-06-11] MEDS: Aspirin Chewable 81 MG TAB PER TUBE SCH (09:13)
[2023-06-11] MEDS: Morphine 4 MG/ML VIAL SLOW IVP PRN ×2 (09:13→14:41)
[2023-06-11] MEDS: Ondansetron ODT 4 MG TAB PO PRN (14:48)
[2023-06-11] MEDS: Atorvastatin Calcium 20 MG TAB PO SCH (20:49)
[2023-06-11] MEDS: traZODone HCl 150 MG TAB PO SCH (20:50)
[2023-06-12] MEDS: Ipratropium/Albuterol 3 ML NEB NEB SCH ×4 (00:23→19:40)
[2023-06-12] MEDS: HYDROcodone/Acetaminophen 10/325 mg Tablet PO PRN ×3 (04:00→19:32)
[2023-06-12] MEDS: Acetaminophen 325 MG TAB PO SCH ×4 (04:48→21:26)
[2023-06-12] MEDS: Cipro 250 MG TAB PO SCH ×2 (05:56→21:25)
[2023-06-12] MEDS: Morphine 4 MG/ML VIAL SLOW IVP PRN ×2 (05:57→14:52)
[2023-06-12] MEDS: Budesonide 0.5 MG/2 ML NEB INH SCH ×2 (06:30→19:41)
[2023-06-12] MEDS: Gabapentin 300 MG CAP PO SCH ×2 (09:08→21:27)
[2023-06-12] MEDS: Venlafaxine HCl XR 75 MG CAP PO SCH (09:08)
[2023-06-12] MEDS: Apixaban 5 MG TAB PO SCH ×2 (09:08→22:19)
[2023-06-12] MEDS: guaiFENesin/DM ER PO SCH ×2 (09:08→21:25)
[2023-06-12] MEDS: Aspirin Chewable 81 MG TAB PER TUBE SCH (09:08)
[2023-06-12] MEDS: Polyethylene Glycol 3350 17 GM Packet PO SCH (09:09)
[2023-06-12] MEDS: Amiodarone 200 MG TAB PO SCH ×2 (09:09→21:27)
[2023-06-12] MEDS: Senokot S 8.6-50 MG TAB PO SCH ×2 (09:09→21:26)
[2023-06-12 09:57] LABS: Anion Gap 12 mmol/L (10-20); BUN (Urea Nitrogen) 26 mg/dL (9.8-20.1); Calc. Creatinine Clearance 76 mL/min (70-130); Calcium 8.9 mg/dL (7.8-10.44); Carbon Dioxide 26 mmol/L (23-31); Chloride 107 mmol/L (98-107); Estimated GFR 47; Glucose 130 mg/dL (80-115); Potassium 4.2 mmol/L (3.5-5.1); Sodium 141 mmol/L (136-145)
[2023-06-12 14:00] VITALS: BMI 41.4
[2023-06-12] MEDS: Cyclobenzaprine 10 MG TAB PO PRN (17:01)
[2023-06-12] MEDS: Aluminum & Magnesium Hydroxide 60 ML, diphenhydrAMINE 150 MG, Lidocaine 2% Viscous Solu... SSW PRN ×2 (17:14→21:31)
[2023-06-12] MEDS: Atorvastatin Calcium 20 MG TAB PO SCH (21:27)
[2023-06-12 22:14] VITALS: TEMP 97.9
[2023-06-12] MEDS: traZODone HCl 150 MG TAB PO SCH (22:19)
[2023-06-13] MEDS: Ipratropium/Albuterol 3 ML NEB NEB SCH ×3 (01:58→14:53)
[2023-06-13] MEDS: HYDROcodone/Acetaminophen 10/325 mg Tablet PO PRN ×2 (04:20→13:30)
[2023-06-13] MEDS: Ondansetron ODT 4 MG TAB PO PRN (04:27)
[2023-06-13] MEDS: Acetaminophen 325 MG TAB PO SCH ×3 (04:38→16:14)
[2023-06-13 05:13] LABS: #Eosinphils 0.1 thou/uL (0.0-0.7); #Monocytes 0.5 thou/uL (0.11-0.59); #Neutrophils 6.8 thou/uL (1.40-6.50); %Basophils 0.5 % (0.0-1.0); %Eosinophils 0.9 % (0.0-10.0); %Lymphocytes 14.1 % (21.0-51.0); %Monocytes 6.1 % (0.0-10.0); %Neutrophils 78.1 % (42.0-75.0); Hematocrit 29.9 % (36.0-47.0); Hemoglobin 9.3 g/dL (12.0-16.0); Mean Corpuscular HGB CONC 31.1 g/dL (32.0-36.0); Mean Corpuscular Hemoglobin 30.8 pg (27.0-31.0); Mean Platelet Volume 9.1 fL (7.4-10.4); Platelet Count 331 10x3/uL (130-400); RBC Distribution Width 13.4 % (11.5-14.5); Red Blood Cell (RBC) Count 3.02 mill/uL (4.20-5.40); White Blood Cell (WBC) Count 8.7 10x3/uL (4.8-10.8)
[2023-06-13 05:43] LABS: Anion Gap 12 mmol/L (10-20); BUN (Urea Nitrogen) 19 mg/dL (9.8-20.1); Calc. Creatinine Clearance 89 mL/min (70-130); Calcium 8.7 mg/dL (7.8-10.44); Carbon Dioxide 25 mmol/L (23-31); Chloride 108 mmol/L (98-107); Estimated GFR 59; Glucose 114 mg/dL (80-115); Potassium 3.9 mmol/L (3.5-5.1); Sodium 141 mmol/L (136-145)
[2023-06-13] MEDS: Cipro 250 MG TAB PO SCH (06:03)
[2023-06-13] MEDS: Budesonide 0.5 MG/2 ML NEB INH SCH (06:49)
[2023-06-13] MEDS: Apixaban 5 MG TAB PO SCH (08:01)
[2023-06-13] MEDS: Aspirin Chewable 81 MG TAB PER TUBE SCH (08:01)
[2023-06-13] MEDS: Amiodarone 200 MG TAB PO SCH (08:02)
[2023-06-13] MEDS: Venlafaxine HCl XR 75 MG CAP PO SCH (08:03)
[2023-06-13] MEDS: Gabapentin 300 MG CAP PO SCH (08:03)
[2023-06-13] MEDS: guaiFENesin/DM ER PO SCH (08:03)
[2023-06-13] MEDS: Senokot S 8.6-50 MG TAB PO SCH (08:06)
[2023-06-13] MEDS: Polyethylene Glycol 3350 17 GM Packet PO SCH (08:06)
[2023-06-13 09:10] VITALS: BP 159/87
[2023-06-13] MEDS: Aluminum & Magnesium Hydroxide 60 ML, diphenhydrAMINE 150 MG, Lidocaine 2% Viscous Solu... SSW PRN (14:14)
== END 2023-06-13 18:01 | DRG 871 ==
LOC: ERS 07:35 → CCU 11:12 → IMCU/EMU 06-05 15:33 → 2NO 06-06 18:48 → MSONC 06-12 14:42
PROVIDERS: ADMIT Internal Medicine; ATTEND Internal Medicine
PROC: 4A133R1 Monitoring of Arterial Saturation, Peripheral, Percutaneous Approach (ICD-10-PCS; 2023-05-30)
PROC: 3E033XZ Introduction of Vasopressor into Peripheral Vein, Percutaneous Approach (ICD-10-PCS; 2023-05-30)
PROC: 3E03329 Introduction of Other Anti-infective into Peripheral Vein, Percutaneous Approach (ICD-10-PCS; 2023-05-30)
PROC: 0BH17EZ Insertion of Endotracheal Airway into Trachea, Via Natural or Artificial Opening (ICD-10-PCS; 2023-05-30)
PROC: 5A1945Z Respiratory Ventilation, 24-96 Consecutive Hours (ICD-10-PCS; 2023-05-30)
PROC: 02HV33Z Insertion of Infusion Device into Superior Vena Cava, Percutaneous Approach (ICD-10-PCS; principal; 2023-06-02)
PROC: 5A09357 Assistance with Respiratory Ventilation, Less than 24 Consecutive Hours, Continuous Positive Airway Pressure (ICD-10-PCS; 2023-06-03)
DX: A41.9 Sepsis, unspecified organism (principal); G93.41 Metabolic encephalopathy; I21.A1 Myocardial infarction type 2; R65.21 Severe sepsis with septic shock; J18.9 Pneumonia, unspecified organism; K72.00 Acute and subacute hepatic failure without coma; J80 Acute respiratory distress syndrome; N17.9 Acute kidney failure, unspecified; Z68.41 Body mass index [BMI] 40.0-44.9, adult; E87.20 Acidosis, unspecified; E87.1 Hypo-osmolality and hyponatremia; N18.4 Chronic kidney disease, stage 4 (severe); B37.0 Candidal stomatitis; Z66 Do not resuscitate; Z51.5 Encounter for palliative care; E78.5 Hyperlipidemia, unspecified; J45.909 Unspecified asthma, uncomplicated; M32.9 Systemic lupus erythematosus, unspecified; M79.7 Fibromyalgia; G43.909 Migraine, unspecified, not intractable, without status migrainosus; G62.9 Polyneuropathy, unspecified; F41.9 Anxiety disorder, unspecified; G47.00 Insomnia, unspecified; F17.210 Nicotine dependence, cigarettes, uncomplicated; I12.9 Hypertensive chronic kidney disease with stage 1 through stage 4 chronic kidney disease, or unspecified chronic kidney disease; E87.5 Hyperkalemia; E66.01 Morbid (severe) obesity due to excess calories; K21.9 Gastro-esophageal reflux disease without esophagitis; R53.81 Other malaise; G89.29 Other chronic pain; I48.0 Paroxysmal atrial fibrillation; E88.09 Other disorders of plasma-protein metabolism, not elsewhere classified; Z85.3 Personal history of malignant neoplasm of breast; Z90.49 Acquired absence of other specified parts of digestive tract; Z79.899 Other long term (current) drug therapy; Z88.2 Allergy status to sulfonamides; Z86.711 Personal history of pulmonary embolism; Z79.51 Long term (current) use of inhaled steroids; Z98.890 Other specified postprocedural states; Z90.710 Acquired absence of both cervix and uterus; Z11.52 Encounter for screening for COVID-19
CPT/HCPCS: 31500; 36415; 36416; 36600; 43753; 51702; 70450; 71045; 71250; 74177; 80048; 80053; 80202; 80306; 80307; 81001; 82533; 82805; 83036; 83605; 83690; 83735; 83880; 84145; 84484; 85025; 85610; 85730; 86140; 86704; 86850; 86870; 86900; 86901; 86905; 86922; 87040; 87070; 87081; 87205; 87449; 87899; 90935; 93005; 93010; 93306; 94002; 94003; 94640; 94660; 96365; 96374; 96375; C9113; G0257; J0282; J0613; J0692; J1642; J1644; J1720; J1815; J2060; J2270; J2405; J2704; J2997; J3010; J3370; J3490; J7050; J7070; J7120; J7620; J7626; Q0162; Q0163